=== PATIENT | female | born 1960 | race Caucasian/White ===

== ENCOUNTER 2017-02-26 08:56 | Day surgery (SDC) | payer OTHER ==
[~2017-02-26] VITALS: Ht 162.6 cm; Wt 78.5 kg
[2017-02-26] MEDS ORDERED: GLIP5TAB13 PO (09:40)
[2017-02-26] MEDS ORDERED: ATOR10TA65 PO (09:40)
[2017-02-26] MEDS ORDERED: INSULIN (09:40)
[2017-02-26] MEDS ORDERED: BP MED (09:40)
[2017-02-26] MEDS ORDERED: ASPIRIN PO (09:40)
[2017-02-26] MEDS ORDERED: METF-382 PO (09:40)
[2017-02-26 09:43] VITALS: Ht 162.6 cm; Wt 78.5 kg
[2017-02-26 10:18] VITALS: BP 151/70; PULSE 77; RESP 18
[2017-02-26] MEDS ORDERED: LIDOCAINE 4% SOLUTION 50 ML BTL ONE (10:19)
--- NOTE | 2017-02-26 11:00 | GILP ---
DATE OF PROCEDURE: PROCEDURE: Esophagogastroduodenoscopy. PREOPERATIVE DIAGNOSIS: The patient presenting with a history of abdominal pain which is unresponsi ve to routine therapy. Patient takes omeprazole with no response. Rule out peptic ulcer disease, r ule out esophagitis. POSTOPERATIVE DIAGNOSES: 1. Linear distal erosive esophagitis. 2. Hiatal hernia. 3. Diffuse mild gastritis. 4. A 4 mm gastric sessile fundal polyp. DESCRIPTION OF PROCEDURE: After the informed written consent was obtained, the patient was asked to lie on the left lateral side, 3 mg Versed and 50 mcg of fentanyl was given as intravenous anesthesi a. When the patient became somnolent, the Olympus video upper endoscope was introduced into the orophar ynx, then into the esophagus. Esophagus showed evidence of multiple linear erosions just above the GE junction. Multiple biopsies were obtained to rule out Amaro's esophagus. Small hiatal hernia was noted. Scope at this time was advanced into the stomach. Stomach showed diffuse areas of eryth dahlia in a patchy distribution. Biopsy was done from the antrum, the lesser curvature and the fundus to rule out H. pylori infection. There is a 4 mm flat polyp that was noted in the fundus. This was removed with the cold biopsy forceps. Duodenum showed minimal duodenitis in the bulb of the duoden um also some duodenitis noted just beyond the bulb. Scope at this time was withdrawn and no additio nal abnormalities detected and the procedure was terminated. PLAN: Recommend continue omeprazole 40 mg b.i.d. Dictated By: PILAR MARTIN/NICOLE Conf#: [id number] DID#: [id number] CC: Dancolleeni;*EndCC*
[2017-02-26] MEDS ORDERED: MIDAZOLAM 1 MG/ML 2 ML INJ ONE ×2 (11:03)
[2017-02-26] MEDS ORDERED: FENTAnyl 50 MCG/ML VIAL ONE (11:03)
--- NOTE | 2017-02-26 11:06 | GILP ---
DATE OF PROCEDURE: 02/26/2017 NAME OF PROCEDURE: Colonoscopy and biopsy. PREOPERATIVE DIAGNOSIS: Screening colonoscopy to rule out colon polyps. POSTOPERATIVE DIAGNOSES: 1. Rectal polyp noted about 2 cm above the anus. Biopsy was done. 2. Occasional diverticula noted in the colon. DESCRIPTION OF PROCEDURE: After the informed written consent was obtained, the patient was asked to lie on the left lateral side, 4 mg Versed and 50 mcg of fentanyl was given as intravenous anesthesi a. When the patient became somnolent, the Olympus video colonoscope was introduced into the rectum and scope was advanced all the way to the cecum. Occasional diverticula noted in the ascending colon, b ut no diverticulitis, no bleeding noted. Endoscope at this time was withdrawn. On the way out, a 4 mm flat polyp was noted in fact is a protruding polyp with no stalk located about 2 cm above the an us. This was biopsied. Two biopsies were done from this area. No hemorrhoids noted. Scope at thi s time was withdrawn and on the way out, no additional abnormalities detected and the procedure was terminated. PLAN: Recommend wait for the pathology report. Dictated By: PILAR MARTIN/NTS Conf#: [id number] DID#: [id number] CC: PILAR ZAVALA MD; KELBY DE LEÓN MD;*[facility]*
[2017-02-26 11:25] VITALS: BP 140/83; PULSE 71; RESP 18
== END 2017-02-26 13:10 | disposition home or self-care (01) ==
LOC: GIL 08:56
PROVIDERS: ATTEND Internal Medicine Gastroenterology
DX: Z12.11 Encounter for screening for malignant neoplasm of colon (principal); K21.0 Gastro-esophageal reflux disease with esophagitis; K44.9 Diaphragmatic hernia without obstruction or gangrene; K62.1 Rectal polyp; K57.90 Diverticulosis of intestine, part unspecified, without perforation or abscess without bleeding; K29.70 Gastritis, unspecified, without bleeding; K31.7 Polyp of stomach and duodenum; E11.9 Type 2 diabetes mellitus without complications
CPT/HCPCS: 43239; 45380; 82962; 88305; 88312; 88313; J2250; J3010; Z7610